=== PATIENT | female | born 1985 | race Caucasian/White ===

== ENCOUNTER 2016-10-01 12:41 | Emergency (ER) | payer OTHER ==
[2016-10-01 10:46] LABS: URINE SOURCE CLEAN CATCH
[2016-10-01 10:53] LABS: URINE APPEARANCE CLOUDY; URINE BILIRUBIN NEG (NEG); URINE BLOOD 3+ (NEG); URINE COLOR ORANGE; URINE GLUCOSE NEG (NEG); URINE KETONE NEG (NEG); URINE LEUKOCYTE ESTERASE 3+ (NEG); URINE NITRATE NEG (NEG); URINE PH 6.5 (5-8); URINE PROTEIN TRACE (NEG); URINE SPECIFIC GRAVITY 1.003 (1.003-1.035); URINE UROBILINOGEN 0.2 MG/DL (NEG)
[2016-10-01 10:57] LABS: CULTURE INDICATED? YES; URBCS1 AUWI 0-2 /[HPF] (0-2); URINE BACTERIA AUWI NEG (NEGATIVE); URINE SQUAMOUS EPITHELIAL CELL NONE SEEN /[HPF]; UWBCS1 AUWI 100-200 (0-5)
[2016-10-03 20:37] LABS: CHLAMYDIA TRACH Not Detected (Not Detected); N GONOR Not Detected (Not Detected)
== END 2016-10-01 14:00 | disposition home or self-care (01) ==
LOC: CED 12:41
PROVIDERS: Nurse Practitioner
DX: N30.01 Acute cystitis with hematuria (principal)
CPT/HCPCS: 81003; 84703; 87086; 87088; 87186; 87491; 87591; 87808; 87905; 99283

== ENCOUNTER 2016-11-06 11:51 | Emergency (ER) | payer OTHER ==
[2016-11-06 11:39] LABS: URINE SOURCE CLEAN CATCH
[2016-11-06 12:06] LABS: URINE APPEARANCE CLEAR; URINE BILIRUBIN NEG (NEG); URINE BLOOD NEG (NEG); URINE COLOR YELLOW; URINE GLUCOSE NEG (NEG); URINE KETONE NEG (NEG); URINE LEUKOCYTE ESTERASE NEG (NEG); URINE NITRATE NEG (NEG); URINE PROTEIN NEG (NEG); URINE SPECIFIC GRAVITY 1.003 (1.003-1.035); URINE UROBILINOGEN 0.2 MG/DL (NEG)
[2016-11-06 12:14] LABS: CULTURE INDICATED? NO
[2016-11-07 21:05] LABS: CHLAMYDIA TRACH Not Detected (Not Detected); N GONOR Not Detected (Not Detected)
== END 2016-11-06 12:51 | disposition home or self-care (01) ==
LOC: CFTX 11:51
PROVIDERS: Physician Assistant Medical
DX: B37.3 Candidiasis of vulva and vagina (principal)
CPT/HCPCS: 81003; 84703; 87491; 87591; 87808; 87905; 99284

== ENCOUNTER 2016-11-19 11:31 | Emergency (ER) | payer OTHER ==
[2016-11-19 12:03] LABS: URINE SOURCE CLEAN CATCH
[2016-11-19 12:18] LABS: URINE APPEARANCE CLEAR; URINE BILIRUBIN NEG (NEG); URINE BLOOD NEG (NEG); URINE COLOR YELLOW; URINE GLUCOSE NEG (NEG); URINE KETONE NEG (NEG); URINE LEUKOCYTE ESTERASE 2+ (NEG); URINE NITRATE NEG (NEG); URINE PROTEIN NEG (NEG); URINE SPECIFIC GRAVITY 1.003 (1.003-1.035); URINE UROBILINOGEN 0.2 MG/DL (NEG)
[2016-11-19 12:22] LABS: CULTURE INDICATED? NO
[2016-11-19 12:23] LABS: U HYALINE CASTS AUWI 0-2 /[LPF]; URBCS1 AUWI 0-2 /[HPF] (0-2); URINE BACTERIA AUWI NEG (NEGATIVE); URINE SQUAMOUS EPITHELIAL CELL OCC /[HPF]; UWBCS1 AUWI 25-50 (0-5)
== END 2016-11-19 13:55 | disposition home or self-care (01) ==
LOC: CED 11:31 → CFTX 11:31 → CED 12:51 → CFTX 12:51
DX: N30.00 Acute cystitis without hematuria (principal)
CPT/HCPCS: 81003; 84703; 99283

== ENCOUNTER 2016-12-09 10:23 | Emergency (ER) | payer OTHER ==
[2016-12-09 10:34] LABS: URINE SOURCE CLEAN CATCH
[2016-12-09 11:23] LABS: URINE APPEARANCE CLEAR; URINE BILIRUBIN NEG (NEG); URINE BLOOD TRACE (NEG); URINE COLOR YELLOW; URINE GLUCOSE NEG (NEG); URINE KETONE NEG (NEG); URINE LEUKOCYTE ESTERASE 2+ (NEG); URINE NITRATE POS (NEG); URINE PH 6.5 (5-8); URINE PROTEIN 1+ (NEG); URINE SPECIFIC GRAVITY 1.016 (1.003-1.035)
[2016-12-09 11:30] LABS: CULTURE INDICATED? YES; URINE BACTERIA AUWI 4+ (NEGATIVE); URINE SQUAMOUS EPITHELIAL CELL NONE SEEN /[HPF]; UWBCS1 AUWI 50-100 (0-5)
[2016-12-09 12:07] LABS: BASOPHIL% 0.3 % (0-2.5); EOSINOPHIL# 0.3 X10e3 (0-0.7); EOSINOPHIL% 2.1 % (0.0-7.0); HEMATOCRIT 36.9 % (35.0-45.0); HEMOGLOBIN 11.7 gm/dL (12.0-16.0); LYMPHOCYTE# 1.4 X10e3 (1.0-3.5); LYMPHOCYTE% 11.3 % (17.0-45.0); MEAN CELL VOLUME 84.4 FL (83-96); MEAN CORPUSCULAR HEMOGLOBIN 26.7 PG (28-34); MEAN CORPUSCULAR HGB CONC 31.7 g/dL (30-36); MEAN PLATELET VOLUME 7.8 FL (6.5-11.5); MONOCYTE% 8.1 % (3.0-12.0); NEUTROPHIL% 78.2 % (40-75); PLATELET COUNT 290 X10e3 (140-420); RED BLOOD COUNT 4.37 X10e (3.90-5.30); RED CELL DISTRIBUTION WIDTH 15.8 % (11.0-15.5); WHITE BLOOD COUNT 12.8 X10e3 (4.0-10.5)
[2016-12-09 12:12] LABS: DIFF IND NO
[2016-12-09 12:34] LABS: CALCIUM SERUM 9.1 mg/dL (8.4-10.2); CREATININE SERUM 0.5 mg/dL (0.6-1.4); POTASSIUM 3.8 mmol/L (3.5-5.1)
== END 2016-12-09 13:30 | disposition home or self-care (01) ==
LOC: CFTX 10:23 → CED 10:23 → CFTX 10:54
PROVIDERS: Nurse Practitioner
DX: O23.00 Infections of kidney in pregnancy, unspecified trimester (principal)
CPT/HCPCS: 36415; 80048; 81003; 84702; 84703; 85025; 87086; 87088; 87186; 96365; 99284; J0696

== ENCOUNTER 2016-12-11 11:49 | Emergency (ER) | payer OTHER ==
--- NOTE | ~2016-12-11 | US61 ---
[facility] A Service of [facility] RADIOLOGY TEXT RESULTS PATIENT: DELL MARTÍNEZ LOCATION: [facility] : 85 UNIT #: [id number] AGE: [address]: Jose Saxena MD SEX: F ORDER DR: [id number] [facility] [address] [place], [place] [address] [id number] E MR#: [id number] Acc #: [id number] NAME: DELL MARTÍNEZ : 1985 SEX: F STUDY DATE/TIME: 12/11/2016 15:24 UNIT: [facility] ROOM: STUDY DESCRIPTION: US /Mat <14Wk / Attending Physician: Jose Saxena M.D. Ordering Physician: Jose Saxena M.D. Primary Care Physician: Chano Galvez M.D. MEDICAL IMAGING REPORT This report is preliminary unless electronic signature is present EXAM First trimester pelvic ultrasound. IMPRESSION patient. Pelvic pain and left flank pain for the past 5 days. Quantitative beta-HCG level is pending at the time of this study but was 602 two days prior to the study. PROCEDURE Stewart-scale, Doppler imaging of the pelvis via transabdominal and transvaginal approach. COMPARISON None. FINDINGS The uterus is anteverted measures 7.5 x 4 x 4.2 cm. Endometrium measures approximately 1.2 cm in thickness. No definite intrauterine gestational sac is seen. The right ovary measures 2.6 x 1.7 x 2.2 cm and contains a 2.5 cm simple cyst. Left ovary measures 2.5 x 2.1 x 2.1 cm and contains a complex lesion measuring 2 cm, with rim hypervascularity. IMPRESSION 1. No identified intrauterine . 2. Complex lesion in the left ovary measuring up to 2 cm with rim hypervascularity is favored to represent a corpus luteum. Correlate with the patient's beta-HCG level. 3. Unremarkable appearance of the uterus. 4. 2.5 cm benign simple cyst in the right ovary. Dictated by... Allen Lopez M.D. [facility] A Service of [facility] RADIOLOGY TEXT RESULTS PATIENT: DELL MARTÍNEZ [id number] [birth year] UNIT #: [id number] AGE: [address]: Jose Saxena MD SEX: F ORDER DR: THIS IS AN ELECTRONICALLY VERIFIED REPORT Allen Lopez M.D. at 12/13/2016 2:28 PM EED/pcl TD: 12/11/2016 20:11 JOB #: [id number] MEDICAL IMAGING REPORT Page 1 of 1 COPY
[2016-12-11 15:08] LABS: BASOPHIL% 0.5 % (0-2.5); EOSINOPHIL# 0.4 X10e3 (0-0.7); HEMATOCRIT 35.3 % (35.0-45.0); HEMOGLOBIN 11.2 gm/dL (12.0-16.0); LYMPHOCYTE% 25.9 % (17.0-45.0); MEAN CORPUSCULAR HGB CONC 31.8 g/dL (30-36); MEAN PLATELET VOLUME 7.8 FL (6.5-11.5); MONOCYTE# 0.8 X10e3 (0-1.0); MONOCYTE% 10.7 % (3.0-12.0); NEUTROPHIL# 4.4 X10e3 (1.5-7.1); NEUTROPHIL% 57.9 % (40-75); PLATELET COUNT 279 X10e3 (140-420); RED BLOOD COUNT 4.15 X10e (3.90-5.30); WHITE BLOOD COUNT 7.6 X10e3 (4.0-10.5)
[2016-12-11 15:10] LABS: DIFF IND NO
[2016-12-11 15:22] LABS: URINE SOURCE CLEAN CATCH
[2016-12-11 15:28] LABS: URINE APPEARANCE CLEAR; URINE BILIRUBIN NEG (NEG); URINE BLOOD NEG (NEG); URINE COLOR YELLOW; URINE GLUCOSE NEG (NEG); URINE KETONE NEG (NEG); URINE LEUKOCYTE ESTERASE TRACE (NEG); URINE NITRATE NEG (NEG); URINE PROTEIN NEG (NEG); URINE SPECIFIC GRAVITY 1.011 (1.003-1.035); URINE UROBILINOGEN 0.2 MG/DL (NEG)
[2016-12-11 15:31] LABS: CULTURE INDICATED? NO; URBCS1 AUWI 0-2 /[HPF] (0-2); URINE BACTERIA AUWI NEG (NEGATIVE); URINE SQUAMOUS EPITHELIAL CELL OCC /[HPF]
[2016-12-11 15:38] LABS: ALBUMIN SERUM 3.8 g/dL (3.5-5.0); ALKALINE PHOSPHATASE 49 U/L (32-92); ALT (SGPT) 12 U/L (10-40); AST (SGOT) 16 U/L (10-42); BILIRUBIN,TOTAL 0.4 mg/dL (0.2-2.0); BLOOD UREA NITROGEN 9 mg/dL (9-23); CALCIUM SERUM 9.3 mg/dL (8.4-10.2); CARBON DIOXIDE 24 mmol/L (22-31); CHLORIDE 104 mmol/L (100-111); CREATININE SERUM 0.4 mg/dL (0.6-1.4); GLOM FILT RATE Estimated 138.8 mL/min (>60); GLUCOSE FASTING 83 mg/dL (70-110); LIPASE 18 U/L (22-51); POTASSIUM 3.8 mmol/L (3.5-5.1); PROTEIN TOTAL SERUM 7.6 g/dL (6.0-8.3); SODIUM 135 mmol/L (135-145)
[2016-12-11 15:47] LABS: BILIRUBIN, DIRECT <0.1 mg/dL (0.0-0.2); BILIRUBIN,INDIRECT 0.3 mg/dL (0.0-0.9)
== END 2016-12-11 17:55 | disposition home or self-care (01) ==
LOC: CED 11:49
PROVIDERS: Emergency Medicine
DX: O99.89 Other specified diseases and conditions complicating pregnancy, childbirth and the puerperium (principal); R10.9 Unspecified abdominal pain; Z3A.00 Weeks of gestation of pregnancy not specified
CPT/HCPCS: 36415; 76801; 80048; 80076; 81003; 83690; 84702; 85025; 99284